=== PATIENT | male | born 1975 | race Caucasian/White ===

== ENCOUNTER 2017-07-31 20:39 | Emergency (ER) | payer OTHER ==
[2017-07-31] MEDS ORDERED: Lidocaine 1% 20 ML MDV INJECT ONE ×2 (20:51)
--- NOTE | 2017-07-31 20:52 | EDM.PDOC ---
ED HPI GENERAL MEDICAL PROBLEM - General Chief Complaint: General Stated Complaint: PT HAS FISH HOOK IN LT MIDDLE FINGER Time Seen by Provider: 07/31/17 20:51 Source of Information: Reports: Patient History Limitations: Reports: No Limitations - History of Present Illness INITIAL COMMENTS - FREE TEXT/NARRATIVE: HISTORY AND PHYSICAL: History of present illness: Patient is a 41-year-old male who presents to the emergency room today with complaints of a fishhook being stuck in his left middle finger. States he was preparing his tackle box to go fishing tomorrow when a hook got stuck in the pad of his distal left middle digit. Tetanus is up-to-date. Review of systems: As per history of present illness and below otherwise all systems reviewed and negative. Past medical history: As per history of present illness and as reviewed below otherwise noncontributory. Surgical history: As per history of present illness and as reviewed below otherwise noncontributory. Social history: No reported history of drug or alcohol abuse. Family history: As per history of present illness and as reviewed below otherwise noncontributory. Physical exam: General: Well-developed and well-nourished 41-year-old male. Alert and oriented. Nontoxic appearing and in no acute distress. HEENT: Atraumatic, normocephalic, pupils equal and reactive bilaterally, negative for conjunctival pallor or scleral icterus, mucous membranes moist, throat clear, neck supple, nontender, trachea midline. No drooling or trismus noted. No meningeal signs Lungs: Clear to auscultation, breath sounds equal bilaterally, chest nontender. Heart: S1S2, regular rate and rhythm without overt murmur Abdomen: Soft, nondistended, nontender. Negative for masses or hepatosplenomegaly. Negative for costovertebral tenderness. Pelvis: Stable nontender. Genitourinary: Deferred. Rectal: Deferred. Skin: Granite noted to pad of left distal third digit. Intact, warm, dry. No lesions or rashes noted. Extremities: Atraumatic, negative for cords or calf pain. Neurovascular unremarkable. Neuro: Awake, alert, oriented. Cranial nerves II through XII unremarkable. Cerebellum unremarkable. Motor and sensory unremarkable throughout. Exam nonfocal. Notes: Area was cleansed and anesthetized with 1% lidocaine. Granite was extracted. Area was cleansed with chlorhexidine and bacitracin dressing applied. Diagnostics: [] Therapeutics: Wound care, Bacitracin dressing Impression: Granite injury of the finger, left 3rd digit Plan: 1. Please the area clean and dry. Monitor for signs of infection. 2. Tylenol and/or ibuprofen as needed for pain management. 3. Follow-up with your primary care provider within the next week or sooner as needed. Return to the ED as needed and as discussed. Definitive disposition and diagnosis as appropriate pending reevaluation and review of above. Onset: Today Duration: Minutes: Location: Reports: Upper Extremity, Left - Related Data Allergies Allergy/AdvReac Type Severity Reaction Status Date / Time No Known Allergies Allergy Verified 07/31/17 20:51 Home Meds: Home Meds . [No Known Home Meds] 07/31/17 [History] ED ROS GENERAL - Review of Systems Review Of Systems: ROS reveals no pertinent complaints other than HPI. ED EXAM, GENERAL - Physical Exam Exam: See Below (See dictation) Course - Vital Signs Last Recorded V/S: Last Vital Signs Temp 97 F 07/31/17 20:39 Pulse 83 07/31/17 20:39 Resp 18 07/31/17 20:39 BP 136/81 07/31/17 20:39 Pulse Ox 94 L 07/31/17 20:39 - Orders/Labs/Meds Meds: Medications Discontinued Medications Generic Name Dose Route Start Last Admin Trade Name Mona PRN Reason Stop Dose Admin Bacitracin 1 dose 07/31/17 20:58 07/31/17 21:07 Bacitracin Oint 1 Gm TOP 07/31/17 20:59 1 dose ONETIME ONE Administration Lidocaine HCl 20 ml 07/31/17 20:51 07/31/17 21:06 Xylocaine 1% INJECT 07/31/17 20:52 20 ml ONETIME ONE Administration Lidocaine HCl 20 ml 07/31/17 20:51 Xylocaine 1% INJECT 07/31/17 20:52 ONETIME ONE Departure - Departure Time of Disposition: 21:00 Disposition: Home, Self-Care 01 Clinical Impression: Fish hook injury of finger of left hand Qualifiers: Encounter type: initial encounter Qualified Code(s): S69.92XA - Unspecified injury of left wrist, hand and finger(s), initial encounter - Discharge Information Forms: ED Department Discharge Additional Instructions: The following information is given to patients seen in the emergency department who are being discharged to home. This information is to outline your options for follow-up care. We provide all patients seen in our emergency department with a follow-up referral. The need for follow-up, as well as the timing and circumstances, are variable depending upon the specifics of your emergency department visit. If you don't have a primary care physician on staff, we will provide you with a referral. We always advise you to contact your personal physician following an emergency department visit to inform them of the circumstance of the visit and for follow-up with them and/or the need for any referrals to a consulting specialist. The emergency department will also refer you to a specialist when appropriate. This referral assures that you have the opportunity for follow-up care with a specialist. All of these measure are taken in an effort to provide you with optimal care, which includes your follow-up. Under all circumstances we always encourage you to contact your private physician who remains a resource for coordinating your care. When calling for follow-up care, please make the office aware that this follow-up is from your recent emergency room visit. If for any reason you are refused follow-up, please contact the [facility] Emergency Department at and asked to speak to the emergency department charge nurse. [facility] [address] [place] [id number] 1. Please the area clean and dry. Monitor for signs of infection. 2. Tylenol and/or ibuprofen as needed for pain management. 3. Follow-up with your primary care provider within the next week or sooner as needed. Return to the ED as needed and as discussed.
[2017-07-31] MEDS ORDERED: Bacitracin Oint 1 GM U/D Packet TOP ONE (20:58)
== END 2017-07-31 21:15 | disposition home or self-care (01) ==
LOC: MW.ED 20:39
DX: S60.453A Superficial foreign body of left middle finger, initial encounter (principal); W26.8XXA Contact with other sharp object(s), not elsewhere classified, initial encounter
CPT/HCPCS: 99282; 99283